=== PATIENT | male | born 1995 | race Two or more races ===

== ENCOUNTER 2017-02-23 10:58 | Emergency (ER) | payer SELFPAY ==
--- NOTE | ~2017-02-23 | ER ---
[facility] AGE: 22 Y [address] ROOM: [place] [address] LOCATION: [facility] ADMIT DATE: 02/23/2017 ER/Outpatient Report DISCHARGE DATE: 02/23/2017 FAMILY PHYSICIAN: PHYSICIAN, NO ATTENDING PHYSICIAN: Ellen Elder Time of Arrival: 1058 hours. Time of Evaluation: 1102 hours. CHIEF COMPLAINT: Laceration. HISTORY OF PRESENT ILLNESS: The patient is a 22-year-old male, who presents to the emergency department today with a chief complaint of thumb laceration. It is on his right thumb. It is on the dorsal aspect of his thumb. It occurred 1 hour prior to arrival. He took 2 Aleve prior to arrival. It is a sharp pain, it is worse with movement, currently 5/10 in severity. He was initially seen over [facility], was given a tetanus shot and transferred here for further evaluation. He was cutting metal with some scissors. He did not have any gloves on. PAST MEDICAL HISTORY: None. PAST SURGICAL HISTORY: None. SOCIAL HISTORY: The patient denies any tobacco, alcohol, or illicit drug use. ALLERGIES: NO KNOWN DRUG ALLERGIES. MEDICATIONS: None. PRIMARY CARE DOCTOR: None. REVIEW OF SYSTEMS: All systems are reviewed by myself and negative with the exception of those discussed in HPI and past medical history. PHYSICAL EXAMINATION: VITAL SIGNS: Weight 58 kg. Blood pressure 120/71, pulse 82, respiratory rate PATIENT'S NAME: [facility] AGE: 22 Y [address] ROOM: [place] [address] LOCATION: [facility] ADMIT DATE: 02/23/2017 ER/Outpatient Report DISCHARGE DATE: 02/23/2017 FAMILY PHYSICIAN: PHYSICIAN, NO ATTENDING PHYSICIAN: Ellen Elder 17, temperature 97.3, oxygen saturation 98% on room air. GENERAL: The patient is a 22-year-old male, appears stated age, in no acute distress at this time. HEENT: Head: Normocephalic, atraumatic. Pupils are equal, round, and reactive to light. NECK: Supple. There is no nuchal rigidity. CARDIOVASCULAR: Regular rate and rhythm. No murmurs, rubs, or gallops. LUNGS: Clear to auscultation bilaterally. No wheezes, rales, or rhonchi. ABDOMEN: Soft, nontender, and nondistended. No rebound, rigidity, or guarding. MUSCULOSKELETAL: The patient is unable to extend the distal aspect of his right thumb. SKIN: Warm and dry. The patient has been anesthetized at [facility]. So sensation is unable to be assessed of the thumb. The patient does have a 2.0 cm laceration. It is gaping. There is tendon noted of the extensor pollicis longus. LABORATORY DATA AND X-RAY: A three-view x-ray of the right hand was obtained. There was no evidence of fracture noted. IMPRESSION: 1. Acute 2.0 cm laceration to the right thumb with tendon involvement. 2. Initial visit. EMERGENCY DEPARTMENT COURSE: The patient was brought back to the examination room. He was seen and evaluated by myself. X-rays were obtained as described above. The patient does have evidence of extensor tendon involvement. I have contacted Dr. Vogel with Orthopedic Surgery, who is on-call for Trauma Orthopedics today. His recommendations are to update the tetanus which the patient has had at [facility] to initiate prophylactic Keflex for wound control. He has recommended nonabsorbable suture repair with instructions to follow up with a hand surgeon, Dr. De La Rosa, in 1-2 weeks for definitive repair of this tendinous involvement. I have discussed with FARHEEN Stanley, the case, he has seen and evaluated the patient as well. Please see his procedure note for the repair and discussion through the interpreter deaf. Keflex was written. Dix was written for pain. DISPOSITION: The patient was discharged to home in good conditions with instructions to follow up with Dr. De La Rosa, hand surgeon. He is to call to make this appointment. PATIENT'S NAME: MARTHA MAYES [facility] AGE: 22 Y [address] ROOM: [place], [place] [address] LOCATION: [facility] ADMIT DATE: 02/23/2017 ER/Outpatient Report DISCHARGE DATE: 02/23/2017 FAMILY PHYSICIAN: PHYSICIAN, NO ATTENDING PHYSICIAN: Ellen Elder ELLEN ELDER DO KJR/modl /[id number] d: 02/23/172040 t: 02/28/1714, OUTPATIENT REPORT
--- NOTE | ~2017-02-23 | ER ---
PATIENT'S NAME: MARTHA MAYES [facility] AGE: 22 Y [address] ROOM: [place] [address] LOCATION: [facility] ADMIT DATE: 02/23/2017 ER/Outpatient Report DISCHARGE DATE: 02/23/2017 FAMILY PHYSICIAN: PHYSICIAN, NO ATTENDING PHYSICIAN: Yuyr Elder TIME SEEN: The patient was seen about 1205 hours. This is a dictation on the procedure and the patient had been seen by Dr. Elder for a laceration to his right thumb, and the patient was found to have a severed extensor tendon. Dr. Elder and the orthopedist motion picture commentator recommended just closing the wound and then follow up with Dr. De La Rosa for repair of the tendon. The wound was approximately 2 cm on the dorsal side just below the distal joint. The wound was anesthetized with 1% Xylocaine after the skin was cleansed with Betadine. The wound was then irrigated thoroughly with normal saline. The skin was closed with 4-0 Prolene interrupted sutures x3. Topical antibiotic, splint, and sterile dressing applied. The patient's take-home instruction was done through an pot puncher. The patient is to follow up with Dr. De La Rosa at [facility] within the next 7-10 days and recommended that he call to make an appointment. He was also started on Keflex 500 and Paradox for pain. The patient advised if he develops increased pain or swelling or redness or discharge, to follow up sooner. The patient appeared to understand the take- home instructions. FARHEEN SULLIVAN FOR DO [employer]/rickyl /[id number] d: 02/23/172003 t: 03/03/17 1209, OUTPATIENT REPORT
== END 2017-02-23 12:27 | disposition disaster alternative care site (69) ==
LOC: EDBD 10:58 → GACC 10:58
PROC: 0HQFXZZ Repair Right Hand Skin, External Approach (ICD-10-PCS; principal; 2017-02-23)
DX: S56.321A Laceration of extensor or abductor muscles, fascia and tendons of right thumb at forearm level, initial encounter (principal); W26.8XXA Contact with other sharp object(s), not elsewhere classified, initial encounter